=== PATIENT | female | born 1990 | race Caucasian/White ===

== ENCOUNTER 2024-04-03 12:11 | Outpatient (CLI) | payer BC, SELFPAY | END 2024-04-03 12:12 | disposition home or self-care (01) | LOC: NFLDREF 04-09 02:57 | PROVIDERS: Visit Provider Physician Assistant | DX: N30.00 Acute cystitis without hematuria (principal); N39.0 Urinary tract infection, site not specified | CPT/HCPCS: 87086 ==

== ENCOUNTER 2024-04-15 12:05 | Outpatient (CLI) | payer BC, SELFPAY | END 2024-04-15 12:06 | disposition home or self-care (01) | LOC: NFLDREF 04-19 03:15 | DX: R30.0 Dysuria (principal) | CPT/HCPCS: 87086 ==